=== PATIENT | female | born 1975 | race Caucasian/White ===

== ENCOUNTER 2021-10-31 06:32 | Day surgery (SDC) | payer BC ==
--- NOTE | 2021-10-29 12:58 | EKG ---
Test Date: 2021-10-28 Test Time: 14:41:35 Knitting Machine Mechanic: [id number] MEASUREMENT RESULTS: Intervals: Rate: 71 NV: 176 QRSD: 88 QT: 414 QTc: 449 Claude: P: 52 NV: 176 QRS: 26 T: 28 INTERPRETIVE STATEMENTS: Normal sinus rhythm Normal ECG No previous ECG available for comparison Electronically Signed On 10-29-21 12:57:31 CDT by Michael Giraldo
[2021-10-31] MEDS ORDERED: Ringers Lactate 1,000 ML IV ONE (07:16)
[2021-10-31] MEDS ORDERED: OXYMETAZOLINE HCL 0.05% 15ML NAS ONE ×2 (07:16→07:54)
[2021-10-31] MEDS ORDERED: MIDAZOLAM HCL 2 MG/2 ML INJ ONE (07:43)
[2021-10-31] MEDS ORDERED: LIDOCAINE 2% MPF 5 ML VIAL ONE (07:43)
[2021-10-31] MEDS ORDERED: FENTANYL CITR 100 MCG/2 ML ONE ×2 (07:43→08:57)
[2021-10-31] MEDS ORDERED: dexAMETHasone 10 MG/ML VIAL ONE (07:43)
[2021-10-31] MEDS ORDERED: propofoL 200 MG/20 ML VIAL IV ONE (07:43)
[2021-10-31] MEDS ORDERED: SCOPOLAMINE HYDROBROMIDE PATCH TD ONE (07:43)
[2021-10-31] MEDS ORDERED: ROCURONIUM 50 MG/5 ML VIAL IV ONE (07:44)
[2021-10-31] MEDS ORDERED: ONDANSETRON 4 MG/2 ML VIAL ONE ×2 (07:48→10:26)
[2021-10-31] MEDS ORDERED: NA CHLORIDE 0.9% 0 ML ONE ×3 (07:53)
[2021-10-31] MEDS ORDERED: LIDOCAINE 1% W/EPI 1:100,000 10 ML VIAL ONE (07:53)
[2021-10-31] MEDS ORDERED: EPHEDRINE SULF 50 MG/ML VIAL ONE (08:22)
[2021-10-31] MEDS ORDERED: HYDRALAZINE HCL 20 MG/ML VIAL ONE (08:35)
[2021-10-31] MEDS ORDERED: KETOROLAC 30 MG/ML INJ ONE (09:15)
--- NOTE | 2021-10-31 09:58 | P.OP ---
Date of Service: 10/31/21 Preoperative Diagnosis: [Chronic maxillary sinusitis] [, nasal obstruction] , [, inferior turbinate hypertrophy] Postoperative diagnosis: Same Procedure: Right maxillary antrostomy with tissue removal and superficial ablation bilateral inferior turbinate via cautery Surgeon: Betty Vieyra MD Electrical Assembler: None Indication for procedure: The patient had nasal obstruction with persistent right cheek pain and pressure with otherwise normal-appearing sinuses.. The risks, benefits, and alternatives to surgical procedure were discussed with the patient and/or family and they agreed to proceed. Surgical findings: Large cyst on the inferior posterior aspect of the maxillary sinus IV Fluids: Crystalloid, 650 ml Implants/Packing: Posisep resorbable nasal dressing, right middle meatus/nasal cavity Estimated Blood Loss: 30ml Complications: [none] Description of procedure in detail: The patient was brought to the operating room. They were placed under general anesthesia via oral endotracheal tube. The head of bed was turned 90 degrees. The nasal hairs were trimmed. The nasal cavity was examined with the nasal speculum and headlight with the following findings: Inferior turbinate hypertrophy, moderate right septal deviation. The nasal cavity was packed with Afrin-soaked pledgets in preparation for the proce dure. The patient was draped in a standard fashion for nasal surgery. A 0 degree endoscope was then used to perform a nasal endoscopy with notable findings of narrow right nasal cavity with rightward septal deviation. Photo documentation was obtained. The right middle turbinate was gently medialized with a [place] and the middle meatus was packed with Afrin-soaked pledgets. After time for effect these were removed. The uncinate process was visualized and gently medialized using a maxillary seeker/ball-tipped probe. The small backbiter and 90 degree [place] were used to remove the uncinate process. There was moderate bleeding and the right nasal cavity was packed with multiple Afrin-soaked pledgets. Coordination with anesthesia for appropriate blood pressure control was performed. After removal of packing, additional removal of uncinate tissue anteriorly allowed for better visualization. A 30 degree rigid endoscope was then used to better visualize the maxillary antrostomy. The posterior/visualized portion of the maxillary sinus was nearly completely filled with a large cyst appearing structure. The maxillary [place] was used to reach into the maxillary sinus and generously grasped the wall of the cyst. It was removed as a single specimen. Photodocumentation was obtained. With the 30 degree endoscope the created ostomy was in continuity with the natural ostium. During the course of the procedure, the mucosa overlying the right septal deviation was traumatized and was treated with bipolar electrocautery to control bleeding. At the conclusion of the procedure, the Afrin-soaked pledgets were packed to allow for hemostasis. After removal and confirmation of the pledget count, the middle meatus was packed with posisep resorbable nasal dressing and positioned with a freer elevator. The packing was then thoroughly irrigated with 3 mL of sterile saline. The bipolar electrocautery was then used with endoscopic guidance to perform superficial ablation of the bilateral inferior turbinates in order to improve the patient's nasal airway. The electrocautery was initially placed at the posterior aspect of the turbinate and multiple locations along the length and height of the turbinate were treated with cauterization. At the conclusion of the procedure, all pledget counts were confirmed correct. The patient was returned to care of anesthesia for awakening extubation in the operating room which proceeded without difficulty. The patient was transported to the recovery room and will be discharged home later today in the care of their family. The patient is given written and verbal instructions regarding the importance of saline irrigations and nasal precautions.
[2021-10-31] MEDS: PROMETHAZINE INJ 25 MG/ML AMP ONE ×2 (10:28→10:45)
[2021-10-31 10:42] VITALS: BP 148/93; TEMP 96.1; O2SAT 97
[2021-10-31] MEDS ORDERED: TRAMADOL HCL 50 MG TAB ONE (11:17)
== END 2021-10-31 11:36 | disposition home or self-care (01) ==
LOC: OR 06:32
PROVIDERS: ATTEND Otolaryngology
PROC: 09TL8ZZ Resection of Nasal Turbinate, Via Natural or Artificial Opening Endoscopic (ICD-10-PCS; 2021-10-31)
PROC: 099Q8ZZ Drainage of Right Maxillary Sinus, Via Natural or Artificial Opening Endoscopic (ICD-10-PCS; principal; 2021-10-31 07:45)
DX: J32.0 Chronic maxillary sinusitis (principal); J34.89 Other specified disorders of nose and nasal sinuses; J34.3 Hypertrophy of nasal turbinates
CPT/HCPCS: 93005; 88305; 31267; 30801; J0360; J2704; J2550; J2250; J3010 ×2; J1100; J7120; J2405; J7030; J7040; J7050